=== PATIENT | female | born 1960 | race Caucasian/White ===

== ENCOUNTER → 2016-06-28 | Outpatient (CLI) | payer BC ==
[~2016-06-28] MED LIST: ALDACTONE100 MG PO; AMBIEN10 M1 PO; COUMADIN2.5 MG PO; Coumadin5 MG PO; LYRICA75 M1 PO; WELLBUTRIN XL300 MG PO; XANAX1 MG PO
[2016-06-28 15:21] LABS: RETICULOCYTE % 1.69 % (0.50-2.50)
[2016-06-28 15:25] LABS: IRF 12.6 % (2.4-13.3); RET-He 34.7 pg (32.1-37.9)
[2016-06-28 15:37] LABS: IRON 53 ug/dL (50-170); IRON SATURATION 16 %; UIBC 267 ug/dL (110-365)
[2016-06-28 15:39] LABS: C-REACTIVE PROTEIN < 0.29 MG/DL (0-0.3)
[2016-06-28 15:46] LABS: VITAMIN D, 25-HYDROXY 32.4 ng/mL (30-100)
[2016-06-28 15:47] LABS: FERRITIN 18.2 ng/mL (10.0-291.0)
[2016-06-29 08:12] LABS: RHEUMATOID ARTHRITIS FACTOR <10.0 IU/mL (0.0-13.9)
== END | disposition home or self-care (01) ==
LOC: LAB 13:58
PROVIDERS: Internal Medicine
DX: R06.02 Shortness of breath (principal); Z79.899 Other long term (current) drug therapy

== ENCOUNTER → 2016-11-10 | Outpatient (CLI) | payer OTHER ==
[2016-11-10 14:39] LABS: EOS % 2.2 % (1.0-4.0); HEMATOCRIT 44.2 % (37.0-47.0); HEMOGLOBIN 14.3 g/dl (12.0-16.0); LYMPH % 30.6 % (27.0-41.0); MEAN CELL VOLUME 93.2 fl (81.0-99.0); MEAN CORPUSCULAR HGB 30.2 pg (27.0-31.0); MEAN CORPUSCULAR HGB CONC 32.4 g/dl (33.0-37.0); MEAN PLATELET VOLUME 9.4 fl (9.6-12.3); MONO % 4.5 % (3.0-9.0); NEUT % 61.6 % (47.0-73.0); PLATELET COUNT AUTOMATED 289 10*3/uL (130-400); RED BLOOD COUNT 4.74 10*6/uL (4.10-5.10); WHITE BLOOD COUNT 9.6 10*3/uL (4.8-10.8)
[2016-11-10 14:40] LABS: BASO # 0.1 10*3/uL (0.0-0.1); BASO % 0.8 % (0.0-1.0); EOS # 0.2 10*3/uL (0.0-0.4); LYMPH # 2.9 10*3/uL (1.3-4.4); MONO # 0.4 10*3/uL (0.1-1.0); NEUT # 5.9 10*3/uL (2.3-7.9)
[2016-11-10 15:15] LABS: ALKALINE PHOSPHATASE 135 U/L (45-117); BILIRUBIN, DIRECT < 0.1 mg/dL (0.0-0.2); BUN 18 mg/dl (7-24); CHLORIDE 103 mmol/L (98-107); CREATININE 0.88 mg/dL (0.55-1.02); POTASSIUM 3.4 mmol/L (3.5-5.1); SGOT/AST 24 IU/L (3-35); SGPT/ALT 42 U/L (12-78); SODIUM 141 mmol/L (136-145); TOTAL PROTEIN 8.2 gm/dL (6.4-8.2)
== END | disposition home or self-care (01) ==
LOC: LAB 14:27
PROVIDERS: Otolaryngology
DX: J35.01 Chronic tonsillitis (principal); R59.0 Localized enlarged lymph nodes

== ENCOUNTER → 2016-11-16 | Outpatient (CLI) | payer OTHER | END | disposition home or self-care (01) | LOC: CT 11-10 14:26 | DX: J35.01 Chronic tonsillitis (principal); R59.0 Localized enlarged lymph nodes ==

== ENCOUNTER → 2016-12-14 | Outpatient (CLI) | payer OTHER ==
[2016-12-14 14:31] LABS: THYROXINE (T4) TOTAL 10.4 ug/dl (4.8-13.9)
[2016-12-14 14:38] LABS: THYROID STIM HORMONE (HS) 1.34 uIU/ml (0.358-4.75)
[2016-12-16 03:09] LABS: FACTOR VIII ACTIVITY 086264 108 % (57-163); FACTOR X ACTIVITY 086306 113 % (76-183)
== END | disposition home or self-care (01) ==
LOC: LAB 13:31
PROVIDERS: Internal Medicine
DX: E04.1 Nontoxic single thyroid nodule (principal)

== ENCOUNTER → 2017-01-04 | Day surgery (SDC) | payer OTHER | END | disposition home or self-care (01) | LOC: SDC 03:11 | DX: E04.2 Nontoxic multinodular goiter (principal) ==

== ENCOUNTER → 2017-01-25 | Outpatient (CLI) | payer OTHER | LOC: ORTHO 00:50 → CT 00:50 → ORTHO 16:56 | DX: J32.2 Chronic ethmoidal sinusitis (principal) ==

== ENCOUNTER → 2017-01-30 | Outpatient (CLI) | payer OTHER | END | disposition home or self-care (01) | LOC: MRI 02:46 | DX: M19.072 Primary osteoarthritis, left ankle and foot (principal) ==

== ENCOUNTER → 2017-04-10 | Outpatient (CLI) | payer OTHER ==
[2017-04-10 11:55] LABS: BASO # 0.1 10*3/uL (0.0-0.1); EOS # 0.6 10*3/uL (0.0-0.4); EOS % 8.3 % (1.0-4.0); HEMATOCRIT 43.2 % (37.0-47.0); HEMOGLOBIN 14.1 g/dl (12.0-16.0); LYMPH # 2.7 10*3/uL (1.3-4.4); LYMPH % 35.2 % (27.0-41.0); MEAN CELL VOLUME 89.3 fl (81.0-99.0); MEAN CORPUSCULAR HGB 29.1 pg (27.0-31.0); MEAN CORPUSCULAR HGB CONC 32.6 g/dl (33.0-37.0); MEAN PLATELET VOLUME 10.3 fl (9.6-12.3); MONO # 0.5 10*3/uL (0.1-1.0); NEUT # 3.8 10*3/uL (2.3-7.9); NEUT % 49.4 % (47.0-73.0); PLATELET COUNT AUTOMATED 279 10*3/uL (130-400); RED BLOOD COUNT 4.84 10*6/uL (4.10-5.10); RED CELL DISTRI WIDTH 14.1 % (0-14.5); WHITE BLOOD COUNT 7.7 10*3/uL (4.8-10.8)
[2017-04-10 12:22] LABS: ALBUMIN 3.8 gm/dl (3.1-4.5); ALKALINE PHOSPHATASE 149 U/L (45-117); BUN 16 mg/dl (7-24); CHLORIDE 104 mmol/L (98-107); CHOLESTEROL 218 mg/dL (<200); CREATININE 0.85 mg/dL (0.55-1.02); HDL CHOLESTEROL 62 mg/dl (40-60); LDL CHOLESTEROL 125 mg/dL (9-159); POTASSIUM 3.9 mmol/L (3.5-5.1); SGOT/AST 23 IU/L (3-35); SGPT/ALT 34 U/L (12-78); SODIUM 140 mmol/L (136-145); T3 UPTAKE 32 % (31-39); TOTAL PROTEIN 7.6 gm/dL (6.4-8.2); TRIGLYCERIDES 157 mg/dl (<150); VLDL CHOLESTEROL 31 mg/dL (6-40)
== END | disposition home or self-care (01) ==
LOC: LAB 11:32
PROVIDERS: Internal Medicine
DX: Z13.220 Encounter for screening for lipoid disorders (principal); Z12.31 Encounter for screening mammogram for malignant neoplasm of breast; Z13.1 Encounter for screening for diabetes mellitus; E04.1 Nontoxic single thyroid nodule; E55.9 Vitamin D deficiency, unspecified; R73.03 Prediabetes

== ENCOUNTER 2017-06-03 12:02 | Inpatient (IN) | payer OTHER ==
[2017-06-03] VITALS (10 sets, daily range): BP systolic 120–185; BP diastolic 72–112
[~2017-06-03] VITALS: Ht 165.1 cm; Wt 72.7 kg
--- NOTE | ~2017-06-03 | WRIGHTHP ---
[place], [place] PATIENT HISTORY AND PHYSICAL EXAM NAME: JOSE MICHELLE [facility] #: [id number] UNIT #: [id number] ROOM: 512 DOCTOR: DEYSI LINCOLN MD BIRTHDATE: [birth year] DOS: 06/03/2017 HISTORY OF PRESENT ILLNESS: The patient is a 56-year-old female with past medical history of: 1. Generalized anxiety disorder. 2. Coagulopathy with factor V deficiency. The patient takes only aspirin. 3. GERD and esophagitis. 4. Arthritic pains in her knees and legs. The patient presented to the Emergency Department after she started taking a weight loss medication recently, medication called Contrave. Last night the patient was quite stressed and she started having tightness in her upper chest, some pain in her jaws, which she has had before and her blood pressure became elevated. The patient came to the Emergency Department and was found to have some nonspecific ST-T changes. The patient was recommended for admission and further management. After admission, the patient is being seen by Dr. Pereira, the top and seat cover fitter and he feels all her symptoms are from Contrave, the diet pill she started recently, which elevated her blood pressures. The patient's blood pressures have normalized with treatment, is not complaining of any chest tightness anymore. No shortness of breath. No dizziness or fainting episodes. No GI or urinary symptoms. REVIEW OF SYSTEMS: LUNGS: No increasing shortness of breath. GASTROINTESTINAL: No nausea, vomiting, diarrhea or constipation. Actually, the patient did have some nausea at home before coming to the hospital. CARDIOVASCULAR SYSTEM: The patient did have upper chest tightness, which has resolved. FAMILY HISTORY: Noncontributory. SOCIAL HISTORY: . Denies smoking cigarettes, alcohol and drug abuse. ALLERGIES: No known drug allergies. HOME MEDICATIONS: Xanax, aspirin, Mobic, metoclopramide, omeprazole and Contrave. PHYSICAL EXAMINATION: GENERAL: Alert and oriented x 3, in no visible distress. HEENT AND NECK: Extraocular movements are intact. Sclerae are anicteric. Oral mucosa is moist and clean. No obvious facial weakness. Neck is supple without any lymphadenopathy. No thyromegaly. No JVD. No carotid arterial bruits. LUNGS: Clear to auscultation. No wheezing. No rhonchi. CARDIOVASCULAR SYSTEM: Heart rate is regular in rate and rhythm. S1 and S2 normally audible. No significant murmur or any other abnormal cardiac sounds. ABDOMEN: Soft, nontender. No obvious organomegaly. Bowel sounds are present. No obvious herniation. EXTREMITIES: Without significant cyanosis or edema. Warm to touch. CENTRAL NERVOUS SYSTEM: Alert and oriented x 3. Cranial nerves II-XII are [place], [place] PATIENT HISTORY AND PHYSICAL EXAM [facility]: [facility] [id number] #: [id number] ROOM: [facility] DOCTOR: DEYSI LINCOLN MD BIRTHDATE: [birth year] intact. Speech is normal. The patient is able to move all extremities. Normal muscle strength. Deep tendon reflexes are equal on both sides. Plantars were downgoing. IMPRESSION AND PLAN: 1. The patient with chest pains with negative cardiac enzymes so far and nonspecific ST-T changes. Plan to check her cardiac enzymes and if normal discharge her to home tomorrow. The patient has been evaluated by top and seat cover fitter, Dr. Pereira who has not recommended any further evaluation. It is quite likely that her elevation of blood pressures, nausea and chest tightness was related to stress and the new weight loss medication she was taking, Contrave. 2. Generalized anxiety disorder, for which patient was continued on Xanax. 3. Arthritic pains in her knees and legs, for which patient was continued on Mobic. 4. Factor V deficiency, coagulopathy, treated with aspirin, which was continued. 5. Severe headache, apparently from taking her Contrave has completely resolved with Tylenol. DEYSI LINCOLN MD CM:HISPHYS:PATIENT HISTORY AND PHYSICAL EXAMINATION [id number] DEYSI LINCOLN MD 06/03/[id number] interface
--- NOTE | ~2017-06-03 | CON ---
[place], [place] REPORT OF CONSULTATION [id number] UN[facility] #: [id number] ROOM: 512 DOCTOR: SINCERE KELLER MD BIRTHDATE: [birth year] DOS: 06/03/2017 REFERRING PHYSICIAN: Sujit Juarez MD REASON FOR CONSULTATION: Hypertension and headache. HISTORY OF PRESENT ILLNESS: The patient is a 56-year-old woman who has no previous history of hypertension. She states that on 06/02/2017, she was having a bad day at work. She felt a progressively worsening headache with a tight sensation in her cheeks, neck and upper chest. She took her blood pressure and it was 188/98. She felt that the elevation in blood pressure was likely due to the stress at work. She went home, but continued to feel worse and therefore she came in to the Emergency Room today. Blood pressure in the Emergency Room was 185/112. She was given clonidine p.o. with a drop in her blood pressure. She felt much better as her blood pressure came down. Her electrocardiogram showed sinus rhythm with nonspecific ST and T-wave changes. Serial cardiac troponins have been normal. We were asked to assess the cause of her high blood pressure and significance of the facial, neck and upper chest tightness. On review of medications, I note that the patient is on a diet pill, Contrave which is a combination of naltrexone and bupropion. Review of the side effects of this medication include frequent headaches and hypertension. In addition, she is on Meloxicam, which can raise pressure and she was under considerable stress. It is likely that the combination of several factors resulted in her hypertensive episode. PAST MEDICAL HISTORY: Includes: 1. Factor V Leiden deficiency. The patient has never had a blood clot or stroke, but several family members also have factor V Leiden and her sister has had multiple strokes. 2. Degenerative joint disease of the knees. 3. Anxiety and depression. 4. Echocardiogram, 01/27/2016 for dyspnea showed normal left ventricular size and function with an ejection fraction is 60%. No valve abnormalities seen. REVIEW OF SYSTEMS: The patient denies diplopia or loss of vision, but she has had photophobia with the headaches that have improved since the headaches have resolved. She denies focal weakness. She denies lightheadedness or syncope. She did have some nausea with the headache, but denied vomiting. She denies fevers, chills, sweats or recent weight change. She denies orthopnea or PND. She denies any palpitations. She denies cough or hemoptysis. She denies change in bowel or bladder habits. She denies any blood in her stools or urine. She denies any peripheral edema. She denies any skin rashes. The remainder of the review of systems is negative except as noted above. MEDICATIONS: Prior to admission included alprazolam 1 mg b.i.d., aspirin 81 mg daily, Meloxicam 7.5 mg b.i.d., metoclopramide 5 mg at bedtime p.r.n. nausea, Contrave ER one p.o. b.i.d., started 3 weeks prior to this admission and omeprazole 40 mg daily. [place], [place] REPORT OF CONSULTATION NAME: JOSE MICHELLE UNIT #: [id number] ROOM: [facility] DOCTOR: SINCERE KELLER MD BIRTHDATE: [birth year] ALLERGIES: The patient has no known drug allergies. FAMILY HISTORY: Multiple family members have factor V Leiden deficiency. Multiple family members including both parents, her sister and her brother all have hypertension. Her younger sister did have Guillain[place] a flu shot and has had multiple strokes during that event. SOCIAL HISTORY: The patient is a nurse, working at [employer]. She does not smoke or consume excessive amounts of alcohol. She denies the use of any illegal drugs and denies the use of decongestants, sinus medications, etc. PHYSICAL EXAMINATION: GENERAL: The patient is a well-nourished white female who is awake, alert and oriented. VITAL SIGNS: Pulse is 68 and regular, blood pressure is 123/82. She is afebrile. She weighs 72.7 kg and has a body mass index of 26.7. HEENT: Normocephalic and atraumatic. Extraocular muscles are intact. Sclerae are clear. Pupils are equal, round and react to light. The oral mucosa is moist. Tongue is midline. NECK: Supple. She has no jugular distention. Carotids are full. I heard no bruits. She had no neck or supraclavicular masses and no thyromegaly. LUNGS: Respirations are unlabored. Her chest is clear to auscultation and percussion. She has no presacral edema or chest wall tenderness. HEART: Has a regular rhythm. She has no murmurs, rubs or gallops. The PMI is not displaced. There is no precordial heave, lift or thrill. ABDOMEN: Soft and normally active without masses, organomegaly or bruits. EXTREMITIES: Showed no clubbing, cyanosis or edema. Peripheral pulses are easily palpated in the feet. She had no palpable cords and no obvious skin rashes. LABORATORY DATA: I reviewed her electrocardiogram, which showed sinus rhythm and nonspecific ST and T-wave changes. No acute ST elevation was seen. Serial troponin levels have been normal. Hemoglobin is 14.1, white count 5700, platelet count 279,000. INR is 1.0. Sodium 142, potassium 3.5, CO2 of 28, chloride 106, BUN 14, creatinine 0.91. Nonfasting sugar was 104. Magnesium was 2.2. IMPRESSIONS: Hypertensive urgency. The most likely cause for this was her recent initiation of Contrive (naltrexone with bupropion) therapy. Hypertension and headache are both recognized side effects of this combination. This was probably exacerbated by home and work stresses, nonsteroidal anti-inflammatory drugs, etc. In addition, the patient did have a diet Coke with caffeine on the afternoon that she was developing her symptoms. There is a [id number] interaction between caffeine and the naltrexone, which may have resulted in a worsening of the hypertension. PLAN: I would continue to withhold the Contrave and monitor her blood pressure [place], [place] REPORT OF CONSULTATION NAME: JOES MICHELLE [facility] UNIT #: [id number] ROOM: 512 DOCTOR: SINCERE KELLER MD BIRTHDATE: [birth year] in the hospital overnight. We will repeat an EKG in the morning along with serial cardiac enzymes. At this point, I do not think that any further cardiac workup is indicated and I would not start her on antihypertensive therapy, unless her blood pressure remains elevated once the Contrive has been discontinued. I thank Dr. Juarez for asking our advice regarding her care. SINCERE KELLER MD CM:CONSTR:REPORT OF CONSULTATION 1703 06/03/17 1954 interface
[2017-06-03 12:43] LABS: BASO # 0.1 10*3/uL (0.0-0.1); BASO % 1.4 % (0.0-1.0); EOS # 0.3 10*3/uL (0.0-0.4); EOS % 4.9 % (1.0-4.0); HEMATOCRIT 43.8 % (37.0-47.0); HEMOGLOBIN 14.1 g/dl (12.0-16.0); LYMPH # 1.9 10*3/uL (1.3-4.4); LYMPH % 32.8 % (27.0-41.0); MEAN CELL VOLUME 89.2 fl (81.0-99.0); MEAN CORPUSCULAR HGB 28.7 pg (27.0-31.0); MEAN CORPUSCULAR HGB CONC 32.2 g/dl (33.0-37.0); MEAN PLATELET VOLUME 10.6 fl (9.6-12.3); MONO # 0.3 10*3/uL (0.1-1.0); MONO % 5.4 % (3.0-9.0); NEUT # 3.2 10*3/uL (2.3-7.9); NEUT % 55.3 % (47.0-73.0); PLATELET COUNT AUTOMATED 279 10*3/uL (130-400); RED BLOOD COUNT 4.91 10*6/uL (4.10-5.10); RED CELL DISTRI WIDTH 14.6 % (0-14.5); WHITE BLOOD COUNT 5.7 10*3/uL (4.8-10.8)
[2017-06-03 12:52] LABS: ACT PARTIAL THROMBO TIME 24.9 SECONDS (20.8-31.5)
[2017-06-03] MEDS ORDERED: MOBIC7.5 MG PO (12:57)
[2017-06-03] MEDS ORDERED: REGLAN5 MG PO (12:58)
[2017-06-03] MEDS ORDERED: OMEPRAZOLE40 MG PO (12:58)
[2017-06-03] MEDS ORDERED: CONTRAVE ER 8-1 EACH PO (12:58)
[2017-06-03 13:00] LABS: ALBUMIN 3.9 gm/dl (3.1-4.5); ALKALINE PHOSPHATASE 131 U/L (45-117); BUN 14 mg/dl (7-24); CHLORIDE 106 mmol/L (98-107); CREATININE 0.91 mg/dL (0.55-1.02); POTASSIUM 3.5 mmol/L (3.5-5.1); SGOT/AST 18 IU/L (3-35); SGPT/ALT 25 U/L (12-78); SODIUM 142 mmol/L (136-145); TOTAL PROTEIN 7.9 gm/dL (6.4-8.2)
[2017-06-03 13:01] LABS: TROPONIN I < 0.015 ng/ml (<0.045)
[2017-06-03] MEDS ORDERED: ASPIRIN FOR CHI81 MG PO (14:36)
[2017-06-04 05:00] VITALS: BP 118/78
[2017-06-04 08:00] VITALS: BP 130/82
== END 2017-06-04 10:30 | disposition home or self-care (01) | DRG 305 ==
LOC: ED 12:02 → EDHOLD 13:44 → 5E 13:46
PROVIDERS: Emergency Medicine
DX: I16.0 Hypertensive urgency (principal); D68.2 Hereditary deficiency of other clotting factors; I65.23 Occlusion and stenosis of bilateral carotid arteries; G89.29 Other chronic pain; M54.2 Cervicalgia; T50.7X5A Adverse effect of analeptics and opioid receptor antagonists, initial encounter; T43.295A Adverse effect of other antidepressants, initial encounter; G44.89 Other headache syndrome; F41.1 Generalized anxiety disorder; G43.909 Migraine, unspecified, not intractable, without status migrainosus; K21.9 Gastro-esophageal reflux disease without esophagitis; M17.0 Bilateral primary osteoarthritis of knee; I10 Essential (primary) hypertension; F32.9 Major depressive disorder, single episode, unspecified; Z79.01 Long term (current) use of anticoagulants; Y92.89 Other specified places as the place of occurrence of the external cause; Z82.49 Family history of ischemic heart disease and other diseases of the circulatory system; Z79.899 Other long term (current) drug therapy; Z83.2 Family history of diseases of the blood and blood-forming organs and certain disorders involving the immune mechanism; Z82.3 Family history of stroke

== ENCOUNTER → 2017-11-20 | Outpatient (CLI) | payer OTHER ==
[~2017-11-20] MED LIST changes: +ASPIRIN FOR CHI81 MG PO; +CONTRAVE ER 8-1 EACH PO; +MOBIC7.5 MG PO; +OMEPRAZOLE40 MG PO; +REGLAN5 MG PO
[2017-11-21 08:09] LABS: RHEUMATOID ARTHRITIS FACTOR <10.0 IU/mL (0.0-13.9)
[2017-11-21 16:06] LABS: A/G RATIO 1.1 (0.7-1.7); ALBUMIN 3.6 g/dL (2.9-4.4); ALPHA-1-GLOBULIN 0.2 g/dL (0.0-0.4); ALPHA-2-GLOBULIN 0.7 g/dL (0.4-1.0); BETA GLOBULIN 1.2 g/dL (0.7-1.3); GAMMA GLOBULIN 1.3 g/dL (0.4-1.8); GLOBULIN, TOTAL 3.4 g/dL (2.2-3.9); M-SPIKE Not Observed g/dL (Not Observed)
[2017-11-21 22:02] LABS: CCP ANTIBODIES IGG/IGA 24 units (0-19)
== END | disposition home or self-care (01) ==
LOC: LAB 03:34
PROVIDERS: Internal Medicine Rheumatology
DX: R53.83 Other fatigue (principal); E55.9 Vitamin D deficiency, unspecified; M25.50 Pain in unspecified joint; I73.89 Other specified peripheral vascular diseases

== ENCOUNTER → 2017-12-15 | Outpatient (CLI) | payer OTHER | END | disposition home or self-care (01) | LOC: LAB 13:38 | DX: Z53.9 Procedure and treatment not carried out, unspecified reason (principal) ==

== ENCOUNTER → 2017-12-22 | Outpatient (CLI) | payer OTHER | END | disposition home or self-care (01) | LOC: LAB 09:15 | PROVIDERS: Internal Medicine Rheumatology | DX: I73.89 Other specified peripheral vascular diseases (principal); R53.83 Other fatigue; M25.50 Pain in unspecified joint ==

== ENCOUNTER → 2018-09-17 | Outpatient (CLI) | payer OTHER ==
[2018-09-17 14:30] LABS: BASO # 0.1 10*3/uL (0.0-0.1); BASO % 1.2 % (0.0-1.0); EOS # 0.3 10*3/uL (0.0-0.4); EOS % 3.9 % (1.0-4.0); HEMATOCRIT 43.3 % (37.0-47.0); HEMOGLOBIN 13.8 g/dl (12.0-16.0); LYMPH % 40.7 % (27.0-41.0); MEAN CELL VOLUME 91.2 fl (81.0-99.0); MEAN CORPUSCULAR HGB 29.1 pg (27.0-31.0); MEAN CORPUSCULAR HGB CONC 31.9 g/dl (33.0-37.0); MEAN PLATELET VOLUME 10.4 fl (9.6-12.3); MONO # 0.4 10*3/uL (0.1-1.0); MONO % 5.1 % (3.0-9.0); NEUT # 3.5 10*3/uL (2.3-7.9); NEUT % 48.8 % (47.0-73.0); PLATELET COUNT AUTOMATED 298 10*3/uL (130-400); RED BLOOD COUNT 4.75 10*6/uL (4.10-5.10); RED CELL DISTRI WIDTH 15.7 % (0-14.5); WHITE BLOOD COUNT 7.2 10*3/uL (4.8-10.8)
[2018-09-17 15:03] LABS: ALBUMIN 3.9 gm/dl (3.1-4.5); ALKALINE PHOSPHATASE 111 U/L (45-117); BUN 14 mg/dl (7-24); CHLORIDE 107 mmol/L (98-107); CREATININE 0.98 mg/dL (0.55-1.02); PHOSPHOROUS 3.8 mg/dL (2.5-4.9); POTASSIUM 3.7 mmol/L (3.5-5.1); SGOT/AST 23 IU/L (3-35); SGPT/ALT 43 U/L (12-78); SODIUM 140 mmol/L (136-145); TOTAL PROTEIN 7.8 gm/dL (6.4-8.2)
[2018-09-17 15:11] LABS: PTH INTACT 24.7 pg/mL (18.5-88.0); VITAMIN D, 25-HYDROXY 80.9 ng/mL (30-100)
== END | disposition home or self-care (01) ==
LOC: LAB 14:01
PROVIDERS: Internal Medicine
DX: E83.52 Hypercalcemia (principal)

== ENCOUNTER → 2018-12-17 | Outpatient (CLI) | payer OTHER ==
[2018-12-17 16:23] LABS: ALBUMIN 3.6 gm/dl (3.1-4.5); ALKALINE PHOSPHATASE 121 U/L (45-117); BUN 20 mg/dl (7-24); CHLORIDE 106 mmol/L (98-107); CREATININE 0.88 mg/dL (0.55-1.02); FREE T4 0.95 ng/dl (0.76-1.46); POTASSIUM 4.3 mmol/L (3.5-5.1); SGOT/AST 18 IU/L (3-35); SGPT/ALT 37 U/L (12-78); SODIUM 139 mmol/L (136-145); TOTAL PROTEIN 7.3 gm/dL (6.4-8.2)
[2018-12-17 16:25] LABS: PTH INTACT 40.1 pg/mL (18.5-88.0); VITAMIN D, 25-HYDROXY 51.3 ng/mL (30-100)
== END | disposition home or self-care (01) ==
LOC: LAB 14:40
DX: E04.2 Nontoxic multinodular goiter (principal)

== ENCOUNTER → 2019-06-25 | Outpatient (CLI) | payer OTHER ==
[2019-06-25 12:42] LABS: BASO # 0.1 10*3/uL (0.0-0.1); BASO % 0.9 % (0.0-1.0); EOS # 0.5 10*3/uL (0.0-0.4); EOS % 5.8 % (1.0-4.0); HEMATOCRIT 42.7 % (37.0-47.0); HEMOGLOBIN 13.7 g/dl (12.0-16.0); LYMPH # 2.3 10*3/uL (1.3-4.4); LYMPH % 29.1 % (27.0-41.0); MEAN CELL VOLUME 94.9 fl (81.0-99.0); MEAN CORPUSCULAR HGB 30.4 pg (27.0-31.0); MEAN CORPUSCULAR HGB CONC 32.1 g/dl (33.0-37.0); MEAN PLATELET VOLUME 10.6 fl (9.6-12.3); MONO # 0.4 10*3/uL (0.1-1.0); MONO % 4.8 % (3.0-9.0); NEUT # 4.6 10*3/uL (2.3-7.9); NEUT % 58.9 % (47.0-73.0); PLATELET COUNT AUTOMATED 300 10*3/uL (130-400); RED CELL DISTRI WIDTH 15.7 % (0-14.5); WHITE BLOOD COUNT 7.8 10*3/uL (4.8-10.8)
[2019-06-25 13:14] LABS: ALBUMIN 3.7 gm/dl (3.1-4.5); ALKALINE PHOSPHATASE 131 U/L (45-117); BUN 20 mg/dl (7-24); CHLORIDE 109 mmol/L (98-107); CHOLESTEROL 200 mg/dL (<200); CREATININE 0.96 mg/dL (0.55-1.02); HDL CHOLESTEROL 54 mg/dl (40-60); LDL CHOLESTEROL 95 mg/dL (9-159); SGOT/AST 29 IU/L (3-35); SGPT/ALT 46 U/L (12-78); SODIUM 140 mmol/L (136-145); T3 UPTAKE 36 % (31-39); THYROXINE (T4) TOTAL 9.1 ug/dl (4.8-13.9); TOTAL PROTEIN 7.7 gm/dL (6.4-8.2); TRIGLYCERIDES 257 mg/dl (<150); VLDL CHOLESTEROL 51 mg/dL (6-40)
[2019-06-25 13:23] LABS: VITAMIN D, 25-HYDROXY 60.4 ng/mL (30-100)
[2019-06-26 14:04] LABS: t-TRANSGLUTAMINASE (tTG) IGA <2 U/mL (0-3)
== END | disposition home or self-care (01) ==
LOC: LAB 11:53
PROVIDERS: Allergy & Immunology Allergy; Internal Medicine
DX: I10 Essential (primary) hypertension (principal); R21 Rash and other nonspecific skin eruption

== ENCOUNTER → 2020-09-01 | Outpatient (CLI) | payer OTHER ==
[2020-09-01 11:22] LABS: BASO # 0.1 10*3/uL (0.0-0.1); BASO % 0.9 % (0.0-1.0); EOS # 0.2 10*3/uL (0.0-0.4); EOS % 1.7 % (1.0-4.0); HEMATOCRIT 43.6 % (37.0-47.0); LYMPH # 2.8 10*3/uL (1.3-4.4); LYMPH % 31.7 % (27.0-41.0); MEAN CELL VOLUME 93.6 fl (81.0-99.0); MEAN CORPUSCULAR HGB 29.6 pg (27.0-31.0); MEAN CORPUSCULAR HGB CONC 31.7 g/dl (33.0-37.0); MEAN PLATELET VOLUME 10.9 fl (9.6-12.3); MONO # 0.6 10*3/uL (0.1-1.0); MONO % 6.4 % (3.0-9.0); NEUT # 5.2 10*3/uL (2.3-7.9); NEUT % 58.8 % (47.0-73.0); PLATELET COUNT AUTOMATED 300 10*3/uL (130-400); RED BLOOD COUNT 4.66 10*6/uL (4.10-5.10); RED CELL DISTRI WIDTH 15.2 % (0-14.5); WHITE BLOOD COUNT 8.8 10*3/uL (4.8-10.8)
[2020-09-01 11:47] LABS: ALBUMIN 3.5 gm/dl (3.1-4.5); ALKALINE PHOSPHATASE 142 U/L (45-117); BUN 20 mg/dl (7-24); CHLORIDE 109 mmol/L (98-107); CHOLESTEROL 201 mg/dL (<200); CREATININE 0.86 mg/dL (0.55-1.02); FREE T4 1.07 ng/dl (0.76-1.46); LDL CHOLESTEROL 109 mg/dL (9-159); POTASSIUM 3.7 mmol/L (3.5-5.1); SGOT/AST 18 IU/L (3-35); SGPT/ALT 40 U/L (12-78); SODIUM 142 mmol/L (136-145); TOTAL PROTEIN 7.8 gm/dL (6.4-8.2); TRIGLYCERIDES 188 mg/dl (<150)
[2020-09-01 12:47] LABS: VITAMIN D, 25-HYDROXY 38.7 ng/mL (30-100)
== END | disposition home or self-care (01) ==
LOC: LAB 10:48
PROVIDERS: ATTEND Internal Medicine
DX: D52.9 Folate deficiency anemia, unspecified (principal); D51.9 Vitamin B12 deficiency anemia, unspecified; R70.0 Elevated erythrocyte sedimentation rate; R74.8 Abnormal levels of other serum enzymes; R53.81 Other malaise; E55.9 Vitamin D deficiency, unspecified; E03.9 Hypothyroidism, unspecified; R78.4 Finding of other drugs of addictive potential in blood; R73.9 Hyperglycemia, unspecified; Z13.0 Encounter for screening for diseases of the blood and blood-forming organs and certain disorders involving the immune mechanism; Z13.220 Encounter for screening for lipoid disorders; Z00.01 Encounter for general adult medical examination with abnormal findings; Z12.31 Encounter for screening mammogram for malignant neoplasm of breast

== ENCOUNTER → 2022-04-04 | Outpatient (CLI) | payer OTHER | END | disposition home or self-care (01) | LOC: RAD 08:32 | PROVIDERS: ATTEND Orthopaedic Surgery | DX: Z47.33 Aftercare following explantation of knee joint prosthesis (principal) ==